=== PATIENT | male | born 1960 | race Caucasian/White ===

== ENCOUNTER 2023-01-03 13:49 | Outpatient (OUT) | payer OTHER, SELFPAY ==
--- NOTE | 2023-01-03 14:13 | US_ITS ---
The [address] [address] Patient Name: SHARMILA GARVEY MRN: [id number] date: 1960 Sex: M Assigned Patient Location: US Current Patient Location: US Accession/Order Number: [id number] Exam Date: 01/03/2023 14:12 Report Date: 01/03/2023 17:09 At the request of: AMIE SMITH Procedure: US venous doppler LE LT EXAM: US venous doppler LE LT HISTORY: Soft Tissue Disorder M79.89 COMPARISON: None. TECHNIQUE: Grayscale, color and Doppler ultrasound FINDINGS: Region: Left leg Thrombus: None Flow: Normal Augmentation: Normal Compressibility: Normal Identified in the area the patient's palpable abnormality is a mixed simple and complex cystic lesion, avascular, measuring 4.7 x 1.8 x 4.9 cm IMPRESSION: No superficial or deep vein thrombus identified in the left leg Complex cystic structure corresponding to the patient's palpable abnormality. Indeterminate, consider a complex hematoma. Lack of vascularity argues against abscess or tumor Electronically authenticated by: ELLIE BEVERLY Date: 01/03/2023 17:09
== END 2023-01-03 13:50 ==
PROVIDERS: PCP Radiology Diagnostic Radiology; Visit Provider Family Medicine
DX: M79.89 Other specified soft tissue disorders (principal); R93.6 Abnormal findings on diagnostic imaging of limbs
CPT/HCPCS: 93971

== ENCOUNTER 2023-01-09 11:16 | Outpatient (OUT) | payer OTHER, MEDICAID, SELFPAY | END 2023-01-09 11:17 | disposition home or self-care (01) | LOC: WC 11:17 | PROVIDERS: PCP Radiology Diagnostic Radiology; Visit Provider Student in an Organized Health Care Education/Training Program | DX: I87.312 Chronic venous hypertension (idiopathic) with ulcer of left lower extremity (principal); L97.821 Non-pressure chronic ulcer of other part of left lower leg limited to breakdown of skin; R60.0 Localized edema; I87.311 Chronic venous hypertension (idiopathic) with ulcer of right lower extremity; L97.811 Non-pressure chronic ulcer of other part of right lower leg limited to breakdown of skin; L60.9 Nail disorder, unspecified; J45.901 Unspecified asthma with (acute) exacerbation; I48.91 Unspecified atrial fibrillation; E11.622 Type 2 diabetes mellitus with other skin ulcer; R00.0 Tachycardia, unspecified; E78.5 Hyperlipidemia, unspecified; I10 Essential (primary) hypertension; I89.0 Lymphedema, not elsewhere classified; E66.8 Other obesity; I83.893 Varicose veins of bilateral lower extremities with other complications; I87.2 Venous insufficiency (chronic) (peripheral) | CPT/HCPCS: G0463 ==

== ENCOUNTER 2023-02-03 14:17 | Outpatient (OUT) | payer OTHER, MEDICAID, SELFPAY | END 2023-02-03 14:18 | disposition home or self-care (01) | LOC: WC 14:17 | PROVIDERS: PCP Radiology Diagnostic Radiology; Visit Provider Physician Assistant | DX: I87.313 Chronic venous hypertension (idiopathic) with ulcer of bilateral lower extremity (principal); L97.821 Non-pressure chronic ulcer of other part of left lower leg limited to breakdown of skin; L97.811 Non-pressure chronic ulcer of other part of right lower leg limited to breakdown of skin; E11.621 Type 2 diabetes mellitus with foot ulcer; L97.521 Non-pressure chronic ulcer of other part of left foot limited to breakdown of skin; L97.421 Non-pressure chronic ulcer of left heel and midfoot limited to breakdown of skin | CPT/HCPCS: G0463 ==

== ENCOUNTER 2023-03-03 14:41 | Outpatient (OUT) | payer OTHER, MEDICAID, SELFPAY | END 2023-03-03 14:42 | disposition home or self-care (01) | LOC: WC 14:43 | PROVIDERS: PCP Radiology Diagnostic Radiology; Visit Provider Physician Assistant | DX: R60.0 Localized edema (principal); I87.312 Chronic venous hypertension (idiopathic) with ulcer of left lower extremity; L97.821 Non-pressure chronic ulcer of other part of left lower leg limited to breakdown of skin | CPT/HCPCS: G0463 ==

== ENCOUNTER 2023-06-04 14:31 | Outpatient (OUT) | payer OTHER, MEDICAID, SELFPAY ==
[2023-06-04 14:50] LABS: Basophils Percent Auto 0.3 % (0.2-2.0); Eosinophils Absolute Auto 0.1 10^3/uL (0.0-0.7); Hematocrit 35.7 % (42.0-54.0); Immature Granulocytes Abs Auto 0.11 10^3/uL (0.00-0.03); Immature Granulocytes Pct Auto 1.1 % (0.0-0.5); Lymphocytes Absolute Auto 1.4 10^3/uL (1.2-3.8); Lymphocytes Percent Auto 13.8 % (20.5-60.0); Mean Corpuscular HGB Conc 30.8 g/dL (29.9-35.2); Mean Corpuscular Hemoglobin 27.7 pg (25.9-34.0); Mean Corpuscular Volume 89.9 fL (80.0-94.0); Mean Platelet Volume 10.7 fL (9.5-13.5); Monocytes Absolute Auto 0.5 10^3/uL (0.3-0.8); Monocytes Percent Auto 5.3 % (1.7-12.0); Neutrophils Absolute Auto 7.8 10^3/uL (1.4-6.5); Neutrophils Percent Auto 78.5 % (43.0-75.0); Platelet Count 381 10^3/uL (150-450); Red Blood Count 3.97 10^6/uL (4.70-6.10); Red Cell Distribution Width 17.2 % (11.0-15.0)
[2023-06-04 14:58] LABS: Microalbumin Urine Random <1.3 mg/dL (<=30.0)
[2023-06-04 15:13] LABS: Estimated Average Glucose 143 mg/dL; Glycohemoglobin A1C 6.6 % (4.5-6.2)
[2023-06-04 15:22] LABS: Alanine Aminotransferase 29 U/L (16-63); Albumin Globulin Ratio 0.5; Albumin Level 2.7 g/dL (3.4-5.0); Alkaline Phosphatase 100 U/L (46-116); Anion Gap 11.3; Aspartate Amino Transferase 17 U/L (15-37); BUN Creatinine Ratio 11.9; Bilirubin Total 0.5 mg/dL (0.2-1.0); Calcium 9.1 mg/dL (8.5-10.1); Carbon Dioxide 30.5 mmol/L (21.0-32.0); Chloride 98 mmol/L (98-107); Chol HDL Ratio 2.5; Cholesterol 100 mg/dL (<=200); Estimated GFR (African America >60 (>=60); Estimated GFR (Non-African Ame 58 (>=60); Globulin 5.6 g/dL; Glucose 117 mg/dL (74-106); HDL Cholesterol 40 mg/dL (40-60); LDL Cholesterol Calculated 48.2 mg/dL; Potassium 4.8 mmol/L (3.5-5.1); Sodium 135 mmol/L (136-145); Total Protein 8.3 g/dL (6.4-8.2); Triglycerides 59 mg/dL (<=150); VLDL CHOLESTEROL 11.8 mg/dL
[2023-06-04 15:44] LABS: Prostate Specific Antigen Scrn 2.08 ng/mL (<=4.00)
== END 2023-06-04 14:32 | disposition home or self-care (01) ==
LOC: LAB 14:32
PROVIDERS: PCP Radiology Diagnostic Radiology; Visit Provider Family Medicine
DX: E78.2 Mixed hyperlipidemia (principal); I10 Essential (primary) hypertension; E11.65 Type 2 diabetes mellitus with hyperglycemia; D50.9 Iron deficiency anemia, unspecified; Z12.5 Encounter for screening for malignant neoplasm of prostate
CPT/HCPCS: 36415; 80053; 80061; 82043; 82728; 83036; 85025; G0103

== ENCOUNTER 2023-06-23 13:57 | Outpatient (OUT) | payer OTHER, MEDICAID, SELFPAY | END 2023-06-23 13:58 | disposition home or self-care (01) | LOC: WC 13:58 | PROVIDERS: PCP Radiology Diagnostic Radiology; Visit Provider Physician Assistant | DX: I87.333 Chronic venous hypertension (idiopathic) with ulcer and inflammation of bilateral lower extremity (principal); L97.811 Non-pressure chronic ulcer of other part of right lower leg limited to breakdown of skin; L97.821 Non-pressure chronic ulcer of other part of left lower leg limited to breakdown of skin | CPT/HCPCS: G0463 ==

== ENCOUNTER 2023-07-08 07:24 | Outpatient (RCR) | payer OTHER, SELFPAY ==
[2023-07-08 15:06] LABS: Basophils Percent Auto 0.3 % (0.2-2.0); Eosinophils Absolute Auto 0.1 10^3/uL (0.0-0.7); Eosinophils Percent Auto 0.9 % (0.9-7.0); Hematocrit 34.9 % (42.0-54.0); Hemoglobin 10.7 g/dL (14.0-18.0); Immature Granulocytes Abs Auto 0.16 10^3/uL (0.00-0.03); Lymphocytes Absolute Auto 1.1 10^3/uL (1.2-3.8); Lymphocytes Percent Auto 13.4 % (20.5-60.0); Mean Corpuscular HGB Conc 30.7 g/dL (29.9-35.2); Mean Corpuscular Hemoglobin 27.6 pg (25.9-34.0); Mean Corpuscular Volume 89.9 fL (80.0-94.0); Mean Platelet Volume 10.8 fL (9.5-13.5); Monocytes Absolute Auto 0.5 10^3/uL (0.3-0.8); Monocytes Percent Auto 5.7 % (1.7-12.0); Neutrophils Absolute Auto 6.1 10^3/uL (1.4-6.5); Neutrophils Percent Auto 77.7 % (43.0-75.0); Platelet Count 435 10^3/uL (150-450); Red Blood Count 3.88 10^6/uL (4.70-6.10); Red Cell Distribution Width 16.6 % (11.0-15.0); White Blood Count 7.8 10^3/uL (4.0-11.0)
[2023-07-08 15:13] LABS: Erythrocyte Sedimentation Rate >130 mm/hr (<=20)
[2023-07-08 15:40] LABS: BUN Creatinine Ratio 21.5; Calcium 9.1 mg/dL (8.5-10.1); Carbon Dioxide 26.9 mmol/L (21.0-32.0); Chloride 100 mmol/L (98-107); Estimated GFR (African America >60 (>=60); Estimated GFR (Non-African Ame 56 (>=60); Glucose 162 mg/dL (74-106); Lactate Dehydrogenase 237 U/L (85-227); Percent Iron Saturation 17.3 %; Potassium 5.9 mmol/L (3.5-5.1); Sodium 134 mmol/L (136-145)
[2023-07-09 14:10] LABS: Erythropoietin (EPO), Serum 19.9 mIU/mL (2.6-18.5)
[2023-07-09 15:08] LABS: Haptoglobin 426 mg/dL (32-363)
[2023-07-10 07:09] LABS: Albumin 2.7 g/dL (2.9-4.4); Alpha-1-Globulin 0.3 g/dL (0.0-0.4); Alpha-2-Globulin 1.1 g/dL (0.4-1.0); Free Kappa Lt Chains,S 98.4 mg/L (3.3-19.4); Free Lambda Lt Chains,S 86.7 mg/L (5.7-26.3); Gamma Globulin 1.6 g/dL (0.4-1.8); Immunofixation Result, Serum Comment: (.); Immunoglobulin A, Qn, Serum 595 mg/dL (61-437); Immunoglobulin G, Qn, Serum 1656 mg/dL (603-1613); Immunoglobulin M, Qn, Serum 54 mg/dL (20-172); Kappa/Lambda Ratio,S 1.13 (0.26-1.65); Protein, Total 6.9 g/dL (6.0-8.5)
== END 2023-07-08 14:30 | disposition home or self-care (01) ==
LOC: INF 07:24
PROVIDERS: PCP Family Medicine; Visit Provider Internal Medicine Hematology & Oncology
DX: D64.9 Anemia, unspecified (principal)
CPT/HCPCS: 36415; 80048; 82668; 82728; 82784; 83010; 83521; 83540; 83550; 83615; 84155; 84165; 85025; 85045; 85652; 86140; 86334; G0463

== ENCOUNTER 2023-07-08 12:56 | Outpatient (OUT) | payer OTHER, SELFPAY | END 2023-07-08 12:57 | disposition home or self-care (01) | LOC: WC 12:56 | PROVIDERS: PCP Family Medicine; Visit Provider Podiatrist Foot & Ankle Surgery | DX: R60.0 Localized edema (principal); I87.331 Chronic venous hypertension (idiopathic) with ulcer and inflammation of right lower extremity; L97.811 Non-pressure chronic ulcer of other part of right lower leg limited to breakdown of skin | CPT/HCPCS: 36415; 80048; 82668; 82728; 82784; 83010; 83521; 83540; 83550; 83615; 84155; 84165; 85025; 85045; 85652; 86140; 86334; G0463 ==

== ENCOUNTER 2023-07-29 07:32 | Outpatient (RCR) | payer OTHER, SELFPAY | END 2023-08-20 23:59 | disposition home or self-care (01) | LOC: INF 07:32 | PROVIDERS: PCP Family Medicine; Visit Provider Internal Medicine Hematology & Oncology | DX: D64.9 Anemia, unspecified (principal); D72.829 Elevated white blood cell count, unspecified; F17.210 Nicotine dependence, cigarettes, uncomplicated; J44.9 Chronic obstructive pulmonary disease, unspecified; Z87.01 Personal history of pneumonia (recurrent); R91.1 Solitary pulmonary nodule | CPT/HCPCS: G0463 ==

== ENCOUNTER 2023-09-25 14:31 | Outpatient (OUT) | payer OTHER, SELFPAY ==
[2023-09-25 14:54] LABS: Basophils Percent Auto 0.5 % (0.2-2.0); Eosinophils Absolute Auto 0.1 10^3/uL (0.0-0.7); Eosinophils Percent Auto 2.2 % (0.9-7.0); Hematocrit 39.4 % (42.0-54.0); Hemoglobin 12.3 g/dL (14.0-18.0); Immature Granulocytes Abs Auto 0.01 10^3/uL (0.00-0.03); Immature Granulocytes Pct Auto 0.2 % (0.0-0.5); Lymphocytes Absolute Auto 1.7 10^3/uL (1.2-3.8); Lymphocytes Percent Auto 27.6 % (20.5-60.0); Mean Corpuscular HGB Conc 31.2 g/dL (29.9-35.2); Mean Corpuscular Hemoglobin 28.3 pg (25.9-34.0); Mean Corpuscular Volume 90.8 fL (80.0-94.0); Mean Platelet Volume 10.8 fL (9.5-13.5); Monocytes Absolute Auto 0.5 10^3/uL (0.3-0.8); Monocytes Percent Auto 7.9 % (1.7-12.0); Neutrophils Absolute Auto 3.9 10^3/uL (1.4-6.5); Neutrophils Percent Auto 61.6 % (43.0-75.0); Platelet Count 253 10^3/uL (150-450); Red Blood Count 4.34 10^6/uL (4.70-6.10); Red Cell Distribution Width 15.9 % (11.0-15.0); White Blood Count 6.2 10^3/uL (4.0-11.0)
[2023-09-25 15:19] LABS: C Reactive Protein <0.50 mg/dL (<=0.50)
[2023-09-25 15:59] LABS: Erythrocyte Sedimentation Rate 60 mm/hr (<=20)
== END 2023-09-25 14:32 | disposition home or self-care (01) ==
LOC: LAB 14:33
PROVIDERS: PCP Family Medicine; Visit Provider Internal Medicine Hematology & Oncology
DX: D64.9 Anemia, unspecified (principal); D72.829 Elevated white blood cell count, unspecified; E11.9 Type 2 diabetes mellitus without complications
CPT/HCPCS: 36415; 83036; 85025; 85652; 86140

== ENCOUNTER 2023-09-25 14:35 | Outpatient (OUT) | payer OTHER, SELFPAY ==
[2023-09-25 15:20] LABS: Estimated Average Glucose 134 mg/dL; Glycohemoglobin A1C 6.3 % (4.5-6.2)
== END 2023-09-25 14:36 | disposition home or self-care (01) ==
LOC: LAB 14:37
PROVIDERS: PCP Family Medicine; Visit Provider Family Medicine
DX: E11.9 Type 2 diabetes mellitus without complications (principal)
CPT/HCPCS: 36415; 83036

== ENCOUNTER 2023-09-30 07:29 | Outpatient (RCR) | payer OTHER, SELFPAY | END 2023-10-19 23:59 | disposition home or self-care (01) | LOC: INF 07:29 | PROVIDERS: PCP Family Medicine; Visit Provider Internal Medicine Hematology & Oncology | DX: D64.9 Anemia, unspecified (principal); D72.829 Elevated white blood cell count, unspecified; F17.210 Nicotine dependence, cigarettes, uncomplicated; J44.9 Chronic obstructive pulmonary disease, unspecified; R91.8 Other nonspecific abnormal finding of lung field | CPT/HCPCS: G0463 ==

== ENCOUNTER 2024-01-02 14:13 | Outpatient (OUT) | payer OTHER, SELFPAY ==
--- NOTE | 2024-01-02 14:40 | CT_ITS ---
[address] [address] Patient Name: SHARMILA GARVEY MRN: [id number] date: 1960 Sex: M Assigned Patient Location: CT Current Patient Location: LAB Accession/Order Number: [id number] Exam Date: 01/02/2024 14:42 Report Date: 01/06/2024 07:22 At the request of: KALI PATEL Procedure: CT lung screening low-dose EXAMINATION: CT lung screening low-dose HISTORY: Nicotine Dependence F17.219 COMPARISON: CT chest 12/12/2022, 08/29/2021 TECHNIQUE: Axial, Coronal, and Sagittal images were created without the administration of IV contrast material. Dose reduction techniques were achieved by using automated exposure control and/or adjustment of mA and/or kV according to patient size and/or use of iterative reconstruction technique. FINDINGS: LUNGS: Stable 5 mm nodule within right middle lobe. Mild emphysematous changes. PLEURA: No mass, effusion, or pneumothorax. VASCULATURE: No abnormality. SCARLETT: No mass or pathologic adenopathy. MEDIASTINUM: No mass or pathologic adenopathy. CARDIAC: No enlargement, pericardial thickening, or pericardial effusion. Coronary artery calcifications: AORTA: No aneurysm or dissection. CHEST WALL: No mass or axillary adenopathy BONES: No bone lesion or fracture. LIMITED ABDOMEN: No suspicious findings. Limited images of the upper abdomen. OTHER: Negative. CT/CT lung screening low-dose IMPRESSION: 1. Lung-RADS 2- Benign Appearance or Behavior. Nodules with a very low likelihood of becoming a clinically active cancer due to size or lack of growth. Follow-up CT Chest in 1 year. Electronically authenticated by: ANUJ BOONE Date: 01/06/2024 07:22
== END 2024-01-02 14:14 | disposition home or self-care (01) ==
LOC: CT 14:13
PROVIDERS: PCP Family Medicine; Visit Provider Internal Medicine
DX: F17.219 Nicotine dependence, cigarettes, with unspecified nicotine-induced disorders (principal)
CPT/HCPCS: 71271

== ENCOUNTER 2024-01-02 14:15 | Outpatient (OUT) | payer OTHER, SELFPAY ==
[2024-01-02 14:46] LABS: Basophils Percent Auto 0.4 % (0.2-2.0); Eosinophils Absolute Auto 0.2 10^3/uL (0.0-0.7); Eosinophils Percent Auto 2.1 % (0.9-7.0); Hematocrit 43.2 % (42.0-54.0); Hemoglobin 13.6 g/dL (14.0-18.0); Immature Granulocytes Abs Auto 0.02 10^3/uL (0.00-0.03); Immature Granulocytes Pct Auto 0.3 % (0.0-0.5); Lymphocytes Absolute Auto 1.9 10^3/uL (1.2-3.8); Lymphocytes Percent Auto 26.4 % (20.5-60.0); Mean Corpuscular HGB Conc 31.5 g/dL (29.9-35.2); Mean Corpuscular Hemoglobin 27.6 pg (25.9-34.0); Mean Corpuscular Volume 87.8 fL (80.0-94.0); Mean Platelet Volume 11.3 fL (9.5-13.5); Monocytes Absolute Auto 0.5 10^3/uL (0.3-0.8); Monocytes Percent Auto 6.2 % (1.7-12.0); Neutrophils Absolute Auto 4.7 10^3/uL (1.4-6.5); Neutrophils Percent Auto 64.6 % (43.0-75.0); Platelet Count 266 10^3/uL (150-450); Red Blood Count 4.92 10^6/uL (4.70-6.10); Red Cell Distribution Width 16.1 % (11.0-15.0); White Blood Count 7.3 10^3/uL (4.0-11.0)
[2024-01-02 15:01] LABS: Anion Gap 10.9; BUN Creatinine Ratio 16.6; Calcium 9.2 mg/dL (8.5-10.1); Carbon Dioxide 29.7 mmol/L (21.0-32.0); Chloride 100 mmol/L (98-107); Estimated GFR (African America 54 (>=60); Estimated GFR (Non-African Ame 45 (>=60); Glucose 128 mg/dL (74-106); Potassium 4.6 mmol/L (3.5-5.1); Sodium 136 mmol/L (136-145)
[2024-01-02 15:05] LABS: Microalbumin Urine Random <1.3 mg/dL (<=30.0)
[2024-01-02 15:09] LABS: Estimated Average Glucose 151 mg/dL; Glycohemoglobin A1C 6.9 % (4.5-6.2)
== END 2024-01-02 14:16 | disposition home or self-care (01) ==
LOC: LAB 14:17
PROVIDERS: PCP Family Medicine; Visit Provider Family Medicine
DX: F17.219 Nicotine dependence, cigarettes, with unspecified nicotine-induced disorders (principal); E11.9 Type 2 diabetes mellitus without complications; D64.9 Anemia, unspecified; E87.5 Hyperkalemia
CPT/HCPCS: 36415; 71271; 80048; 82043; 83036; 85025

== ENCOUNTER 2024-06-01 15:14 | Outpatient (OUT) | payer OTHER, SELFPAY ==
--- NOTE | 2024-06-01 15:25 | CA_ITS ---
Patient Name: SHARMILA GARVEY MR#: [id number] : 1960 Exam Date: 06/01/2024 Ordering Doctor: GLORIA GALVAN CNP ECHOCARDIOGRAM REPORT PROCEDURE: CA ECHO DOPPLER COMPLETE INDICATIONS: Heart failure with reduced ejection fraction COMPARISON: None. DESCRIPTION: COMPLETE ECHOCARDIOGRAM Real-time transthoracic echocardiography with 2D, M-mode, spectral and color flow Doppler performed. QUALITY: Technical quality was good. LEFT VENTRICLE: Normal chamber size. Thickened septal wall. Global left ventricular systolic function is normal. LV EF: Visual estimation of left ventricular ejection fraction is 55-60%. DIASTOLIC: Diastolic function is indeterminate. ATRIAL SEPTUM: LEFT ATRIUM: Moderate dilatation. RIGHT ATRIUM: Severe dilatation. RIGHT VENTRICLE: Moderate dilatation. Mildly decreased right ventricular systolic function. TRICUSPID VALVE: Normal mobility and thickness. No stenosis with mild regurgitation. Mild pulmonary hypertension. RVSP 39 mmHg MITRAL VALVE: Normal mobility and thickness. No evidence of mitral valve stenosis. There is no mitral annular calcification. Trivial mitral regurgitation. AORTIC VALVE: Normal trileaflet appearance. No visible sclerosis. Normal leaflet mobility. No evidence of aortic valve stenosis. No aortic regurgitation. AORTIC ROOT: Normal diameter and appearance. PULMONIC VALVE: Normal thickness and mobility. No stenosis. Trivial regurgitation. PERICARDIUM: No evidence of pericardial effusion. IVC: Collapses with inspirations. Normal size. PLEURA: CONCLUSION: 1. Normal left ventricular size and systolic function. LVEF is estimated 55 to 60%. 2. Moderately dilated right ventricle with mildly decreased systolic function. 3. Moderate severe biatrial dilatation. 4. Mild tricuspid regurgitation. 5. Mildly elevated right-sided pressures. Adult Echocardiography Procedure Report Left Ventricle LVEDD (3.7 - 5.6 cm): 4.69 cm LVESD (2.2 - 4.0 cm): 3.20 cm LVIVS thickness (0.6 - 1.2 cm): 1.26 cm LVPW thickness (0.5 - 1.0 cm): 0.88 cm e': 0.12 m/s E - e': 7.61 LVOT Max Gradient: 4.17 mm[Hg] LVOT Area (cm2): 1.02 m/s Peak Velocity (LVOT): 1.02 m/s Mean Velocity (LVOT): 0.56 m/s LVOT Diameter 2.44 cm Left Ventricular Ejection Fraction: 55-60 % Left Atrium LA Volume Index (2D A2C): 25.89 ml/m2 Left Atrium Systolic Dimension: 3.77 cm Mitral Valve MV E to A Ratio: 1.32 Mitral Valve A-Wave Peak Velocity: 0.68 m/s Mitral Valve E-Wave Peak Velocity: 0.90 m/s Right Ventricle RV Internal Diastolic Dimension: 4.60 cm Aorta AO Root Diam: 3.40 cm Ascending Ao Diam: 3.31 cm Aortic Valve AoV Area (Peak Misael): 3.61 cm2, 3.61 cm2 AoV Area (VTI): 3.29 cm2, 3.29 cm2 Peak Velocity(Antegrade Flow): 1.32 m/s Peak Gradient(Antegrade Flow): 7.01 mm[Hg] Mean Velocity(Antegrade Flow): 0.82 m/s Mean Gradient(Antegrade Flow): 3.06 mm[Hg] Velocity Time Integral: 28.89 cm Tricuspid Valve Peak Velocity (Regurgitant Flow): 2.98 m/s, 2.99 m/s Pulmonic Valve Mean Gradient: 2.23 mm[Hg], 2.75 mm[Hg] Mean Velocity: 0.68 m/s, 0.76 m/s Peak Velocity: 1.17 m/s Peak Gradient: 5.09 mm[Hg], 5.79 mm[Hg] Right Atrium Right Atrium Systolic Pressure: 138.38 ml, 138.38 ml Dictated by: Tank Garrett M.D. on 06/01/2024 at 16:38 Approved by: Tank Garrett M.D. on 06/01/2024 at 16:43
== END 2024-06-01 15:15 | disposition home or self-care (01) ==
PROVIDERS: PCP Family Medicine; Visit Provider Nurse Practitioner Family
DX: I50.22 Chronic systolic (congestive) heart failure (principal)
CPT/HCPCS: 93306

== ENCOUNTER 2024-08-30 15:59 | Emergency (ER) | payer OTHER, SELFPAY ==
[2024-08-30 16:03] VITALS: BP 161/79; PULSE 53; TEMP 36.6; O2SAT 93; BMI 41.6
[2024-08-30] MEDS: FLUORESCEIN SODIUM 1 MG STRIP OP (16:28)
[2024-08-30] MEDS: TETRACAINE HCL 0.5% OP SOL 80 DROP/4 ML BOTTLE OP (16:29)
--- NOTE | 2024-08-30 17:33 | ED_ITS ---
HPI - Eye Problem General Chief complaint: Eye Problems Stated complaint: Eye Pain Time Seen by Provider: 08/30/24 16:07 Source: patient Mode of arrival: walk-in Limitations: no limitations History of Present Illness HPI Narrative: 63-year-old male is coming to the ER with a left eye pain that started almost 2 hours before arrival, he mentioned he had no trauma or fall, he woke up with blurry vision in the left eye that is new, patient denies any history of any eye problems The patient complaining of blurry vision as well as pain in the left eye with tearing, he is denying any headache Related Data Allergies Allergy/AdvReac Type Severity Reaction Status Date / Time No Known Drug Allergies Allergy Verified 08/30/24 16:06 Review of Systems ROS Status of ROS 10 or more systems reviewed and unremark able except as noted in history and below PFSH PFSH Social History Little interest or pleasure in doing things: not at all Feeling down, depressed, or hopeless: not at all Exam Narrative Exam Narrative: The patient eye examination shows bilateral pupils are reactive, the patient came with a severe pain and injection of the left eye and on examination I do not see any signs of ulceration or trauma, no drainage and there is no rash There is no hyphema or hypopyon after applying tetracaine I was able to look more at the conjunctiva and I noted that the patient have severely injected conjunctiva especially around the cornea The patient intraocular pressure could not be measured because 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 Constitutional Vital Signs, click to edit/add: Last Vital Signs Temp 97.8 F 08/30/24 16:03 Pulse 53 L 08/30/24 16:03 Resp 20 08/30/24 16:03 BP 161/79 H 08/30/24 16:03 Pulse Ox 93 L 08/30/24 16:03 Course Vital Signs Vital signs: Vital Signs Temperature 97.8 F 08/30/24 16:03 Pulse Rate 53 L 08/30/24 16:03 Respiratory Rate 20 08/30/24 16:03 Blood Pressure 161/79 H 08/30/24 16:03 Pulse Oximetry 93 L 08/30/24 16:03 Temperature 97.8 F 08/30/24 16:03 Pulse Rate 53 L 08/30/24 16:03 Respiratory Rate 20 08/30/24 16:03 Blood Pressure 161/79 H 08/30/24 16:03 Pulse Oximetry 93 L 08/30/24 16:03 MDM - Eye Problem MDM Narrative Medical decision making narrative: The patient is 10 out of 50 in both eyes, and the patient is having blurry vision only in the left eye The patient mentioned that he does his yearly eye checkup in [facility] and last time he had a checkup he did not have any issues The patient is diabetic Discharge Plan Discharge Patient Disposition: Still a Patient
--- NOTE | 2024-08-30 18:39 | ED_ITS ---
HPI - Eye Problem General Chief complaint: Eye Problems Stated complaint: Eye Pain Time Seen by Provider: 08/30/24 16:07 Source: patient Mode of arrival: walk-in Limitations: no limitations History of Present Illness HPI Narrative: The patient comes to the ER with a left eye pain that started today almost 2 hours before arrival, the patient woke up with this with no preceding symptoms, usually get regular checkup and he does not have any issues although he is diabetic The patient denies any trauma or fall denies any new medication, he also denies any history of blurry vision in the right eye, he is presenting to us with left eye pain and blurry vision that started after he woke up from sleep Related Data Allergies Allergy/AdvReac Type Severity Reaction Status Date / Time No Known Drug Allergies Allergy Verified 08/30/24 16:06 Review of Systems ROS Status of ROS 10 or more systems reviewed and unremark able except as noted in history and below PFSH PFSH Social History Little interest or pleasure in doing things: not at all Feeling down, depressed, or hopeless: not at all Exam Narrative Exam Narrative: Examination: Constitutional Vital Signs, click to edit/add: Last Vital Signs Temp 97.8 F 08/30/24 16:03 Pulse 53 L 08/30/24 16:03 Resp 20 08/30/24 16:03 BP 161/79 H 08/30/24 16:03 Pulse Ox 93 L 08/30/24 16:03 Course Vital Signs Vital signs: Vital Signs Temperature 97.8 F 08/30/24 16:03 Pulse Rate 53 L 08/30/24 16:03 Respiratory Rate 20 08/30/24 16:03 Blood Pressure 161/79 H 08/30/24 16:03 Pulse Oximetry 93 L 08/30/24 16:03 Temperature 97.8 F 08/30/24 16:03 Pulse Rate 53 L 08/30/24 16:03 Respiratory Rate 20 08/30/24 16:03 Blood Pressure 161/79 H 08/30/24 16:03 Pulse Oximetry 93 L 08/30/24 16:03 Discharge Plan Discharge Patient Disposition: Still a Patient
[2024-08-30] MEDS: BRIMONIDINE TARTRATE 0.15 % OP SOL 100 DROP/5 ML BOTTLE OP (19:04)
[2024-08-30] MEDS: TOBRAMYCIN/DEXAMETHASONE 0.3%/0.1% OP SUSP 50 DROP/2.5 ML BOTTLE 2 ML OP (19:05)
== END 2024-08-30 19:17 | disposition home or self-care (01) ==
PROVIDERS: Emergency Provider Emergency Medicine; PCP Family Medicine
DX: H20.9 Unspecified iridocyclitis (principal); E11.9 Type 2 diabetes mellitus without complications
CPT/HCPCS: 99284

== ENCOUNTER 2024-09-23 15:58 | Outpatient (OUT) | payer OTHER, SELFPAY ==
[2024-09-23 16:14] LABS: Basophils Percent Auto 0.2 % (0.2-2.0); Eosinophils Absolute Auto 0.1 10^3/uL (0.0-0.7); Eosinophils Percent Auto 1.1 % (0.9-7.0); Hematocrit 47.3 % (42.0-54.0); Hemoglobin 15.4 g/dL (14.0-18.0); Immature Granulocytes Abs Auto 0.03 10^3/uL (0.00-0.03); Immature Granulocytes Pct Auto 0.3 % (0.0-0.5); Lymphocytes Absolute Auto 1.9 10^3/uL (1.2-3.8); Lymphocytes Percent Auto 17.7 % (20.5-60.0); Mean Corpuscular HGB Conc 32.6 g/dL (29.9-35.2); Mean Corpuscular Hemoglobin 29.9 pg (25.9-34.0); Mean Corpuscular Volume 91.8 fL (80.0-94.0); Monocytes Absolute Auto 0.6 10^3/uL (0.3-0.8); Monocytes Percent Auto 5.3 % (1.7-12.0); Neutrophils Absolute Auto 8.2 10^3/uL (1.4-6.5); Neutrophils Percent Auto 75.4 % (43.0-75.0); Platelet Count 268 10^3/uL (150-450); Red Blood Count 5.15 10^6/uL (4.70-6.10); Red Cell Distribution Width 13.3 % (11.0-15.0); White Blood Count 10.9 10^3/uL (4.0-11.0)
[2024-09-23 16:34] LABS: Creatinine Urine Random 74.03 mg/dL (20.00-300.00); Microalbum Creatinine Ratio Ur 70.2 mg/g (0.0-29.9); Microalbumin Urine Random 5.2 mg/dL (<=30.0)
[2024-09-23 16:38] LABS: Estimated Average Glucose 303 mg/dL; Glycohemoglobin A1C 12.2 % (4.5-6.2)
[2024-09-23 17:15] LABS: Alanine Aminotransferase 38 U/L (16-63); Albumin Globulin Ratio 0.9; Albumin Level 3.5 g/dL (3.4-5.0); Alkaline Phosphatase 177 U/L (46-116); Anion Gap 10.4; Aspartate Amino Transferase 19 U/L (15-37); BUN Creatinine Ratio 11.9; Bilirubin Total 0.4 mg/dL (0.2-1.0); Calcium 9.4 mg/dL (8.5-10.1); Carbon Dioxide 31.7 mmol/L (21.0-32.0); Chloride 96 mmol/L (98-107); Chol HDL Ratio 2.3; Cholesterol 116 mg/dL (<=200); Estimated GFR (African America 53 (>=60 mL/min/1.73m^2); Estimated GFR (Non-African Ame 44 (>=60 mL/min/1.73m^2); Globulin 4.1 g/dL; Glucose 378 mg/dL (74-106); HDL Cholesterol 50 mg/dL (40-60); Potassium 5.1 mmol/L (3.5-5.1); Sodium 133 mmol/L (136-145); Thyroid Stimulating Hormone 2.717 uIU/mL (0.358-3.740); Total Protein 7.6 g/dL (6.4-8.2); Triglycerides 100 mg/dL (<=150)
[2024-09-23 17:20] LABS: Prostate Specific Antigen Scrn 2.95 ng/mL (<=4.00)
== END 2024-09-23 15:59 | disposition home or self-care (01) ==
LOC: LAB 15:58
PROVIDERS: PCP Family Medicine; Visit Provider Family Medicine
DX: E11.59 Type 2 diabetes mellitus with other circulatory complications (principal); Z12.5 Encounter for screening for malignant neoplasm of prostate; I48.19 Other persistent atrial fibrillation
CPT/HCPCS: 36415; 80053; 80061; 82043; 82570; 83036; 84443; 85025; G0103

== ENCOUNTER 2025-03-14 14:38 | Outpatient (OUT) | payer MEDICARE, SELFPAY ==
--- OUTSIDE RECORDS SUMMARY | 2025-01-31 10:20 | XMS_ITS ---
Author Organization The [facility] in [place] Address [address] [place] [address] Care Team Providers Care Trainman Name Role Phone Tamanna Pineda Primary Care Provider Simón Hardin [phone] REASON FOR VISIT 1 YEAR-EMPHYSEMA/CT CHEST Encounters Encounter Location Date Provider Diagnosis Pulmonary Medicine [address] [address] 01/31/2025 Simón Hennessy Plan Of Treatment No Information Progress Notes * Jarrod GARVEY RDOB:1960 (64 yo M)Acc No.[id number]:01/31/2025 UNLOCKED PROGRESS NOTE Follow Up Patient: Vannessa MEAD Jarrod Morris Provider: Leann Hennessy DO :1960 A ge:64 Y S ex:Male Date:01/31/2025 Address:[address] [place] [address] [address], [facility] Pcp:Tamanna Pineda Subjective: * Chief Complaints: * 1 . 1 YEAR-EMPHYSEMA/CT CHEST. * Medical History: Objective: * Vitals: Assessment: Plan: * Treatment: * * Electronic signature of Stefania Hennessy DO on 03/14/2025 at 02:40 PM EDT Sign off status: Pending Visit Status: N /S N/C (No Show/No Charge) * Provider: Leann Hennessy DO Date: 01/31/2025 Generated for Printi ng/Faxing/eTransmitting on: 03/14/2025 02:40 PM EDT
--- OUTSIDE RECORDS SUMMARY | 2025-01-31 10:59 | XMS_ITS ---
Author Organization The [facility] in [place] Address [address] [place] [address] Care Team Providers Care Food Trades Assistants Name Role Phone Tamanna Pineda Primary Care Provider Simón Hardin [phone] REASON FOR VISIT No Show Appointment Encounters Encounter Location Date Provider Diagnosis Pulmonary Medicine [place] [address] [place] [address] 01/31/2025 Simón Hennessy Plan Of Treatment No Information Progress Notes * NICKI Jarrod RDOB:1960 (64 yo M)Acc No.[id number]:01/31/2025 Patient: Jarrod JAMA Arturo :1960 A ge:64 Y S ex:Male Address:[facility], [place] [address] * true * Date: Generated for Sergey cuevas/Raymundo/eTransmitting on: 0 03/14/2025 02:40 PM EDT
--- OUTSIDE RECORDS SUMMARY | 2025-02-08 11:00 | XMS_ITS ---
Author Organization The [facility] in [place] Address [address] [place] [address] Care Team Providers Care Hearing Aide Technician Name Role Phone Tamanna Pineda Primary Care Provider Simón Hardin [phone] REASON FOR VISIT 1 YEAR-EMPHYSEMA/CT CHEST Encounters Encounter Location Date Provider Diagnosis Pulmonary Medicine [address] [address] 02/08/2025 Simón Hennessy Plan Of Treatment No Information Progress Notes * Jarrod GARVEY RDOB:1960 (64 yo M)Acc No.[id number]:02/08/2025 UNLOCKED PROGRESS NOTE Follow Up Patient: Jarrod JAMA Arturo Provider: Leann Hennessy DO :1960 A ge:64 Y S ex:Male Date:02/08/2025 Address:[address] [place] [address] [address], [facility] Pcp:Tamanna Pineda Subjective: * Chief Complaints: * 1 . 1 YEAR-EMPHYSEMA/CT CHEST. * Medical History: Objective: * Vitals: Assessment: Plan: * Treatment: * * Electronic signature of Stefania Hennessy DO on 03/14/2025 at 02:40 PM EDT Sign off status: Pending Visit Status: R /S (Rescheduled) * Provider: Leann Hennessy DO Date: 0 02/08/2025 Generated for Printi ng/Faxing/eTransmitting on: 0 03/14/2025 02:40 PM EDT
--- OUTSIDE RECORDS SUMMARY | 2025-03-14 14:40 | XMS_ITS | Clinical Summary ---
Author Organization [facility] Address [address] [place] [address] Phone Care Team Providers Care Law Office Receptionist Name Role Phone Unavailable Primary Care Provider Unavailabl e Social History Tobacco Use Types Packs/Day Years Used Date Smoking Tobacco: Never Assessed Sex and Gender Information Value Date Recorded Sex Assigned at Not on file Legal Sex Male 1:55 AM EST Gender Identity Not on file Sexual Orientation Not on file Plan of Treatment Health Maintenance Due Date Last Done Comments CT Colonography 1960 Colonoscopy 1960 Colorectal Cancer Screening 1960 FIT-DNA (Cologuard) 1960 FIT 1960 Lipid Panel 1960 Sigmoidoscopy 1960 Yearly Adult Physical 1960 MMR Vaccines (1 of 1 - Stand steph series) 10/12/1960 Hepatitis C Screening 10/12/1977 DTaP/Tdap/Td Vaccines (1 - Tdap) 10/12/1981 PSA Prostate Cancer Screening 10/12/2009 Pneumococcal Vaccine (1 of 1 - PCV) 10/12/2009 Zoster Vaccines (1 of 2) 10/12/2009 COVID-19 Vaccine ( - 2023-2 5 season) 2024 Influenza Vaccine (#1) 2025 RSV High Risk: (Elderly (60+ ) or Population) (1 - 1-dose 75+ series) 10/12/2034 HIB Vaccines Aged Out No longer eligi ble based on patient's age to complete this topic HPV Vaccines Aged Out No longer eligi ble based on patient's age to complete this topic Hepatitis A Vaccines Aged Out No long er eligible based on patient's age to complete this topic Hepatitis B Vaccines Aged Out No long er eligible based on patient's age to complete this topic IPV Vaccines Aged Out No longer eligi ble based on patient's age to complete this topic Meningococcal Vaccine Aged Out No meaghan prabhu eligible based on patient's age to complete this topic Rotavirus Vaccines Aged Out No longer eligible based on patient's age to complete this topic
--- OUTSIDE RECORDS SUMMARY | 2025-03-14 14:40 | XMS_ITS | Encounter Summary ---
Author Organization [facility] tem Address [facility] [address] [place] [address] Care Team Providers Care Underground Drill Operator Name Role Phone Tamanna Pineda MD Primary Care Provider [phone] Encounter Details Date Type Department Care Team (Late st Contact Info) Description 03/28/2022 Orders Only [facility] - Acute Care [address] [place] [id number] Gonzalo Kinsey RN Social History Tobacco Use Types Packs/Day Years Used Date Smoking Tobacco: Every Day Cigarettes 0.5 45 Smokeless Tobacco: Never Alcohol Use Standard Drinks/Week Comments Not Currently 0 (1 standard drink = 0.6 oz pur e alcohol) Childcare Answer Date Recorded Childcare Unknown 10/10/2020 Employment Answer Date Recorded Employment Unknown 10/10/2020 Purpose - Life Answer Date Recorded Purpose and direction in life Unknown Sex and Gender Information Value Date Recorded Sex Assigned at Male 12/15/2022 3:36 PM EDT Legal Sex Male 12:04 PM EDT Gender Identity Male 12/15/2022 3:36 PM EDT Sexual Orientation Bisexual 12/15/2022 3: 36 PM EDT COVID-19 Exposure Response Date Recorded In the last month, have you been in contact with someone who was confirmed or suspected to have Coronavirus / COVID-19? No / Unsure 03/25/2022 1:22 PM EDT documented as of this encounter Plan of Treatment Not on file documented as of this encounter Goals Goal Patient Goal Type Associated Problems Recent Progress Patient-Stated? Author safe discharge to home General Yes Karen Pastor, RN Note: Evaluation of progress towards goal: safe transition from hospital to home with family support. documented as of this encounter Visit Diagnoses Not on filedocumented in this encounter Care Teams Underground Drill Operator Relationship Specialty Start Date End Date Tamanna Pineda MD [address] [place] [address] PCP - General Family Medicine 03/26/22 documented as of this encounter
--- OUTSIDE RECORDS SUMMARY | 2025-03-14 14:40 | XMS_ITS | Encounter Summary ---
Author Organization The [facility] Address [address] [place] [address] Care Team Providers Care Patient Care Technician Instructor Name Role Phone Tamanna Pineda MD Primary Care Provider [phone] Reason for Visit * Reason Comments Med Refill Encounter Details Date Type Department Care Team (Late st Contact Info) Description 06/28/2022 Refill [facility] Cardiology [address] [place] [address] Nilton Nichols MD [address] [facility] [address] [place] [address] Essential hypertension Social History Tobacco Use Types Packs/Day Years Used Date Smoking Tobacco: Every Day Cigarettes Smokeless Tobacco: Never Alcohol Use Standard Drinks/Week Comments Yes 0 (1 standard drink = 0.6 oz pur e alcohol) OCCASIONAL Sex and Gender Information Value Date Recorded Sex Assigned at Not on file Legal Sex Male 9:48 PM EDT Gender Identity Not on file Sexual Orientation Not on file documented as of this encounter Plan of Treatment Not on file documented as of this encounter Visit Diagnoses Diagnosis Essential hypertension Unspecified essential hypertension documented in this encounter Care Teams Patient Care Technician Instructor Relationship Specialty Start Date End Date Tamanna Pineda MD [address] PCP - General 03/12/22 documented as of this encounter
--- OUTSIDE RECORDS SUMMARY | 2025-03-14 14:40 | XMS_ITS | Patient Health Record ---
Author Organization The [facility] in [place] Address [address] [place] [address] Care Team Providers Care Director Business Name Role Phone Tamanna Pineda Primary Care Provider Simón Hardin Unavailable [phone] Allergies No Known Allergies Reason For Referral No Information Medications Medication SIG (Take, Route, Frequency, Duration) Notes Start Date End Date Status Furosemide 40 MG 1 tablet Orally Once a day Active buPROPion HCl ER (XL) 300 MG 1 tablet in the morning Orally Once a day Active Atorvastatin Calcium 40 MG 1 tablet Oral ly Once a day Active Amiodarone HCl 200 MG 1 tablet Orally On ce a day Active Xarelto 20 MG 1 tablet with food O rally Once a day Active Trulicity 0.75 MG/0.5ML as directed Subcutaneous Active Spironolactone 25 MG 1 tablet Orally Active Pregabalin 150 MG 1 capsule Orally Onc e a day Active metFORMIN HCl 1000 MG 1 tablet with a me al Orally Once a day Active Lisinopril 5 MG 1 tablet Orally Once a day Active Immunizations Vaccine Route Administration Date Status Comme nts Abrysvo Unknown 05/15/2023 Administered Flu, Flublok (41704) 18yr+, single-dose (9404-2285) Unknown 05/15/2023 Administered Flu, Flucelvax (17672) 2 yrs +, single-dose syringe (4839-7500) Unknown 05/28/2022 Administered Pneumococcal (Prevnar 20) Unknown 07/04/2022 Administer ed SARS-COV-2 (COVID 19 Pfizer 30mcg/0.3mL) Unknown 05/14/2021 Administered Tdap (Boostrix) Unknown 12/13/2022 Administered ZOSTER (SHINGLES) VACCINE (HZV) Unknown 05/15/2023 Admi nistered Social History Tobacco Use: Social History Observation Description Date Details (start date - stop date) Current Smoker NA - NA Tobacco Use/Smoking Question Answer Notes Patient is a current smoker How often do you smoke cigarettes? every day Additional Findings: Tobacco User Moderate cigar ette smoker (10-19 cigs/day) Tobacco Control (Standard) Question Answer Notes Tobacco use: Current every day smoker Additional Findings: Tobacco user Moderate cigar ette smoker (10-19 cigs/day) Problems Problem Type SNOMED Code ICD Code Onset Dates Problem Status W/U Status Risk Notes Problem Obesity (839734390) Obesity, uns pecified (E66.9) Active confirmed Problem Venous ulcer of lowe r extremity due to chronic peripheral venous hypertension (disorder) (709418643670050) Chronic venous hypertension (idiopathic) with ulcer of right lower extremity (I87.311) Active confirmed Problem Venous ulcer of lowe r extremity due to chronic peripheral venous hypertension (740896207071831) Chronic venous hypertension (idiopathic) with ulcer of left lower extremity (I87.312) Active confirmed Problem Stasis dermatitis co-occurrent with venous ulcer of right lower extremity due to chronic peripheral venous hypertension (153992707021134) Chronic venous hypertension (idiopathic) with ulcer and inflammation of right lower extremity (I87.331) Active confirmed Problem Centrilobular emphysema (80402192) Centrilobular emphysema (J43.2) Active confirmed Problem Chronic ulcer of lower extremity (86227494) Non-pressure chronic ulcer of other part of right lower leg limited to breakdown of skin (L97.811) Active confirmed Problem Chronic ulcer of ski n of lower leg (disorder) (38233905136286730) Non-pressure chronic ulcer of other part of left lower leg limited to breakdown of skin (L97.821) Active confirmed Problem Non-pressure chr onic ulcer of other part of left lower leg with fat layer exposed (L97.822) Active confirmed Problem Solitary pulmonary nodule (741433384) Solitary pulmonary nodule (R91.1) Active confirmed Problem Long-term current us e of anticoagulant (651451964) continuous churn buttermaker (current) use of anticoagulants (Z79.01) Active confirmed Problem Long-term current us e of inhaled steroid (317530431) continuous churn buttermaker (current) use of inhaled steroids (Z79.51) Active confirmed Problem Diabetes mellitus type 2 (57708413) Diabetes mellitus type 2, uncomplicated (E11.9) Active confirmed Problem Obstructive sleep apnea (35045520) Obstructive sleep apnea (G47.33) Active confirmed Problem Chronic systolic heart failure (773635412) Chronic systolic congestive heart failure (I50.22) Active confirmed Problem Mental disorder caused by drug (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) Cigarette nicotine dependence with nicotine-induced disorder (F17.219) Active confirmed Problem Central sleep apnea (27729182) Central sleep apnea (G47.31) Active confirmed Problem Ankle edema (93958800) Ankle edema (R60.0) Active confirmed Problem Varicose veins of bilateral lower limbs (37098385144511678) Symptomatic varicose veins of both lower extremities (I83.893) Active confirmed Problem Lymphedema (331788984) Acquired lymphedema of leg (I89.0) Active confirmed Problem Post-thrombotic syndrome of right lower extremity (93338582996578258) Post-thrombotic syndrome of right lower extremity (I87.001) Active confirmed Problem Obesity (180799441) Adult BMI > 30 (E66.8) Active confirmed Problem Hyperlipoproteinemia (0204302) Acquired hyperlipoproteinemia (E78.5) Active confirmed Problem Hyperglycemia due to type 2 diabetes mellitus (545323673445501) Controlled diabetes mellitus with hyperglycemia (E11.65) Active confirmed Problem Chronic venous hypertension with ulcer and inflammation involving left side (I87.332) Active confirmed Problem Stasis dermatitis co-occurrent with venous ulcer of right lower extremity due to chronic peripheral venous hypertension (908654542144679) Chronic venous hypertension w/ulcer and inflammation involv right side (I87.331) Active confirmed Problem Obesity (926447911) Adult BMI > 30 (E66.8) Active confirmed Problem Peripheral venous insufficiency (79559509) Acute stasis dermatitis (I87.2) Active confirmed Problem Atrophy of nail (203812305) Atrophy of nail (L60.3) Active confirmed Problem Skin ulcer of ri ght knee, limited to breakdown of skin (L97.811) Active confirmed Problem Disorder of nail (94853316) Disorder of nail (L60.9) Active confirmed Problem Body mass index 35.0 0 to 39.99 (665295490985521) Body mass index [BMI] 39.0-39.9, adult (Z68.39) Active confirmed Encounters Encounter Location Date Provider Diagnosis Pulmonary Medicine [address] [address] 08/17/2024 Simón Gerhard Centrilobular emphys dani J43.2 Pulmonary Medicine [place] [address] [place] [address] 01/10/2025 Simón Hennessy Centrilobular emphys dani J43.[address] [address] 01/31/2025 Simón Rufino Assessments Encounter Date Diagnosis (ICD Code) Assessment Notes Treatment Notes Treatment Clinical Notes Section Notes 08/17/2024 Centrilobular emphysema (ICD-10 - J43.2) 01/10/2025 Centrilobular emphysema (ICD-10 - J43.2) Plan Of Treatment Future Test Test Name Order Date CT Chest Low Dose for Screening* 025 Medical (General) History Medical History History ICD Code Centrilobular emphysema J43.2 Persistent atrial fibrillation I48.19 Central sleep apnea G47.31 Obstructive sleep apnea G47.33 Chronic systolic congestive heart failur e I50.22 Gastroesophageal reflux disease K21.9 Essential Hypertension I10 Hyperlipidemia E78.5 Lymphedema I89.0 Solitary pulmonary nodule R91.1 Diabetes mellitus type 2, uncomplicated E11.9 Cigarette nicotine dependence with nicot ine-induced disorder F17.219 continuous churn buttermaker (current) use of inhaled stero ids Z79.51 custodial (current) use of anticoagulant s Z79.01 Surgical History Surgery Date(Month/Year) vein ligation discectomy Cardiac Catheterization 03/10/2015 Cardiac Ablation
--- OUTSIDE RECORDS SUMMARY | 2025-03-14 14:40 | XMS_ITS | Clinical Summary ---
Author Organization [facility] Address [id number] [address] [place] [address] Care Team Providers Care Supervisor Core Shop Name Role Phone Tamanna Pineda MD Primary Care Provider [phone] Allergies No known active allergies Medications atorvastatin (LIPITOR) 40 mg tablet atorvastatin 40 mg tablet TAKE 1 TABLET BY MOUTH EVERY DAY Active buPROPion XL (WELLBUTRIN XL) 300 mg 24 hr tablet bupropion HCl XL 300 mg 24 hr tablet, extended release 01/12/20 20 Active lisinopriL (PRINIVIL,ZESTRI L) 5 mg tablet lisinopril 5 mg tablet TAKE 1 TABLET BY MOUTH EVERY DAY Active spironolactone (ALDACTONE) 25 mg tablet spironolactone 25 mg tablet TAKE 1 TABLET EVERY DAY Active rivaroxaban (XARELTO) 20 mg tablet tablet Xarelto 20 mg tablet 05/15/20 20 Active dulaglutide (TRULICITY) 0.75 mg/0.5 mL pen injector Trulicity 0.75 mg/0.5 mL subcutaneous pen injector INJECT 1 (ONE) pen SUBCUTANEOUSLY weekly 09/27/19 21 Active pregabalin (LYRICA) 150 mg capsule 2 (two) times a day. 08/30/19 21 Active metFORMIN (GLUCOPHAGE) 1000 mg tablet Take 1,000 mg by mouth 2 (two) times a day. 09/11/19 21 Active fluticasone propionate (FLONASE) 50 mcg/actuation nasal sprayIndications :Chronic sinusitis, unspecified location Administer 1 spray into each nostril daily. 15.8 mL 12 10/19/19 21 Active guaiFENesin (MUCINEX) 1,200 mg tablet extended release 12hrIndications: Chronic sinusitis, unspecified location Take 1 tablet by mouth 2 (two) times a day. 30 each 10/19/19 21 Active fluticasone propionate (FLONASE) 50 mcg/actuation nasal sprayIndications :Chronic sinusitis, unspecified location Administer 1 spray into each nostril in the morning. 15.8 mL 12 11/30/19 22 Active amiodarone (PACERONE) 200 mg tabletIndication s:prevention of recurrent atrial fibrillation Take 200 mg by mouth in the morning. Indications: prevention of recurrent atrial fibrillation. Active furosemide (LASIX) 40 mg tablet Take 40 mg by mouth daily. Active Active Problems Problem Noted Date Diagnosed Date Cellulitis of right lower extremity 03/27/2022 Overview (03/27/2022): Weeping cellulitis Pneumonia of both lungs due to infectious organi sm 03/25/2022 Pneumonia 03/25/2022 Sensorineural hearing loss (SNHL) of both ears 0 11/16/2020 Chronic sinusitis 10/18/2020 Immunizations Immunization Administration Dates Next Due Tdap 12/13/2022 Social History Tobacco Use Types Packs/Day Years Used Date Smoking Tobacco: Every Day Cigarettes 0.5 45 Smokeless Tobacco: Never Alcohol Use Standard Drinks/Week Comments Not Currently 0 (1 standard drink = 0.6 oz pur e alcohol) Childcare Answer Date Recorded Childcare Unknown 10/10/2020 Employment Answer Date Recorded Employment Unknown 10/10/2020 Hunger Screening Answer Date Recorded Within the past 12 months we worried whether our food would run out before we got money to buy more. Never True 12/13/2022 Within the past 12 months th e food we bought just didn't last and we didn't have money to get more. Never True 12/13/2022 Purpose - Life Answer Date Recorded Purpose and direction in life Unknown Sex and Gender Information Value Date Recorded Sex Assigned at Male 12/15/2022 3:36 PM EDT Legal Sex Male 12:04 PM EDT Gender Identity Male 12/15/2022 3:36 PM EDT Sexual Orientation Bisexual 12/15/2022 3: 36 PM EDT Last Filed Vital Signs Vital Sign Reading Time Taken Comments Blood Pressure 102/66 12/13/2022 9:30 PM EDT Pulse 79 12/13/2022 9:30 PM EDT Temperature 36.9 C (98.5 F) 12/13/2022 7:24 PM EDT Respiratory Rate 17 12/13/2022 9:30 PM EDT Oxygen Saturation 97% 12/13/2022 9:30 PM EDT Inhaled Oxygen Concentration - - Weight 136.1 kg (300 lb) 12/13/2022 7:24 PM EDT Height 175.3 cm (5' 9 ) 12/13/2022 7:24 PM EDT Body Mass Index 44.3 12/13/2022 7:24 PM EDT Plan of Treatment Health Maintenance Due Date Last Done Comments Diabetic Ophthalmology Exam 1960 Statin Use: Diabetic 1960 Depression Screening 1971 Tobacco Screening 1971 Diabetic Foot Exam 10/12/1977 Zoster (Shingles) Vaccine (1 of 2) 10/12/2009 Adult BMI Screening 12/14/2023 12/13/2022 COVID-19 Vaccine ( - 2023-2 5 season) 2024 05/14/2021, 10/19/2020, 09/28/2020 Fall Risk Screening 10/12/2024 Influenza Vaccine 03/21/2025 05/28/2022, , 03/30/2020, Additional history exists DTaP,Tdap and Td Vaccines (2 - Td or Tdap) 12/13/2032 12/13/2022 Goals Goal Patient Goal Type Associated Problems Recent Progress Patient-Stated? Author safe discharge to home General Yes Karen Pastor, RN Note: Evaluation of progress towards goal: safe transition from hospital to home with family support. Medical Devices Not on file Insurance MEDICAID [place] [employer]VANTAGE Advance Directives * Full Code (Latest Code Status on File) Date Activated Date Inactivated Comments 03/25/2022 5:34 PM 03/27/2022 9:28 PM Care Teams Supervisor Core Shop Relationship Specialty Start Date End Date Tamanna Pineda MD [facility] [place] [address] PCP - General Family Medicine 03/26/22
--- OUTSIDE RECORDS SUMMARY | 2025-03-14 14:40 | XMS_ITS | Clinical Summary ---
Author Organization [facility] Address [address] [place] [address] Care Team Providers Care Facialist Name Role Phone Tamanna Pineda MD Primary Care Provider Allergies No known active allergies Medications atorvastatin (Lipitor) 40 MG tablet Take 40 mg by mouth Daily Active buPROPion XL (Wellbutrin XL) 300 MG 24 hr tablet Take 1 tablet by mouth Daily Active lisinopril 5 MG tablet Take 1 tablet by mouth Daily Active metFORMIN (Glucophage) 1000 MG tablet Take 1 tablet by mouth in the morning and 1 tablet before bedtime. Active pregabalin (Lyrica) 150 MG capsule Take 150 mg by mouth in the morning and 150 mg before bedtime. Active sildenafil (Viagra) 100 MG tablet Take 100 mg by mouth if needed Active spironolactone (Aldactone) 25 MG tablet Take 25 mg by mouth in the morning. 02/26/2023 Active Trulicity 0.75 MG/0.5ML solution pen-injector Inject 0.75 mg under the skin 1 (one) time per week Active Xarelto 20 MG tablet Take 20 mg by mouth Daily Active Active Problems Problem Noted Date Diagnosed Date Sensorineural hearing loss (SNHL), bilateral 07/2023 Diabetes mellitus 11/13/2023 Tinnitus, bilateral 11/13/2023 COPD (chronic obstructive pulmonary disease) Centrilobular emphysema 11/13/2023 Dyspnea 09/10/2021 Sensorineural hearing loss (SNHL) of both ears 0 11/16/2020 Chronic sinusitis 10/18/2020 Chronic systolic heart failure 06/12/2020 Spinal stenosis of lumbar region 04/02/2019 Smoker 04/02/2019 Low back pain 12/18/2018 Obstructive sleep apnea syndrome 12/18/2018 Overview (11/13/2023): Uses bi pap Persistent atrial fibrillation 12/10/2018 Essential hypertension 02/24/2015 Paroxysmal atrial flutter 02/24/2015 Resolved Problems Problem Noted Date Diagnosed Date Resolved Date Cellulitis of right lower extremity 03/27/2022 11/13/2023 Overview (11/13/2023): Weeping cellulitis Weeping cellulitis Pneumonia of both lungs due to infectious organism 03/25/2022 11/13/2023 Paroxysmal atrial fibrillation 06/12/2020 11/13/2023 Type 2 diabetes mellitus without complication 06/12/20 20 11/13/2023 History of radiofrequency ab lation procedure for cardiac arrhythmia 04/02/2019 11/13/2023 Overview (11/13/2023): Has had cardioversion 12/2018 / unsuccessful / then had cardiac ablation Has had cardioversion 12/2018 / unsuccessful / then had cardiac ablation Family History Medical History Relation Name Comments Diabetes Brother Heart failure Father Cancer Mother Relation Name Status Comments Brother Father Mother Social History Tobacco Use Types Packs/Day Years Used Date Smoking Tobacco: Every Day Cigarettes Smokeless Tobacco: Never Tobacco Cessation:Ready to Q uit: Not Asked; Counseling Given: Not Answered Alcohol Use Standard Drinks/Week Comments Not Currently 0 (1 standard drink = 0.6 oz pur e alcohol) Sex and Gender Information Value Date Recorded Sex Assigned at Not on file Legal Sex Male 6:34 PM EDT Gender Identity Not on file Sexual Orientation Not on file Last Filed Vital Signs Vital Sign Reading Time Taken Comments Blood Pressure 100/60 11/19/2023 9:58 AM EDT Pulse - - Temperature - - Respiratory Rate - - Oxygen Saturation - - Inhaled Oxygen Concentration - - Weight 122 kg (270 lb) 11/19/2023 9:58 AM EDT Height 172.7 cm (5' 8 ) 11/19/2023 9:58 AM EDT Body Mass Index 41.05 11/19/2023 9:58 AM EDT Plan of Treatment Health Maintenance Due Date Last Done Comments CT Colonography 1959 Colonoscopy 1959 Colorectal Cancer Screening 1959 FIT-DNA 1959 FIT 1959 FOBT 1960 Sigmoidoscopy 1960 Influenza Vaccine (#1) 2025 3, 05/28/2022, 05/14/2021, Additional history exists Pneumococcal Vaccine: 65+ Years Completed 2 Insurance [address] [place] [address] [facility] Care Teams Facialist Relationship Specialty Start Date End Date Tamanna Pineda MD PCP - General Family Medicine 06/20/23
--- OUTSIDE RECORDS SUMMARY | 2025-03-14 14:41 | XMS_ITS | Encounter Summary ---
Author Organization The [facility] Address [address] [place] [address] Care Team Providers Care Software Installation Engineer Name Role Phone Tamanna Pineda MD Primary Care Provider [phone] Reason for Visit * Reason Comments Med Refill Encounter Details Date Type Department Care Team (Late st Contact Info) Description 10/28/2022 Refill [facility] Cardiology [address] [place] [address] Nilton Nichols MD [address] [facility] [address] [place] [address] Edema, unspecified type; Coronary artery disease due to lipid rich plaque Social History Tobacco Use Types Packs/Day Years Used Date Smoking Tobacco: Every Day Cigarettes Passive Smoke Exposure: Current Smokeless Tobacco: Never Alcohol Use Standard Drinks/Week [...] as of this encounter Visit Diagnoses Diagnosis Edema, unspecified type Coronary artery disease due to lipid rich plaque documented in this encounter Care Teams Software Installation Engineer Relationship Specialty Start Date End Date Tamanna Pineda MD [address] PCP - General 03/12/22 documented as of this encounter
--- NOTE | 2025-03-14 14:50 | CT_ITS ---
The [address] [address] Patient Name: SHARMILA GARVEY MRN: [id number] date: 1960 Sex: M Assigned Patient Location: CT Current Patient Location: CT Accession/Order Number: [id number] Exam Date: 03/14/2025 14:45 Report Date: 03/14/2025 15:06 At the request of: KALI PATEL DO Procedure: CT lung screening low-dose CT CHEST WITHOUT CONTRAST, LOW DOSE SCREENING: CLINICAL DATA: A 64-year old current smoker, smoking for over 25 pack-years. COMPARISON: Lung screening CT 01/02/2024 TECHNIQUE: Noncontrast axial CT scan images of the chest were obtained under the low dose screening CT protocol. Coronal and sagittal reconstructed images were also submitted. FINDINGS: Mediastinum : Suboptimal evaluation due to low-dose technique. Thoracic aorta appears normal in caliber. Pulmonary trunk appears nondilated. No pericardial effusion. No lymphadenopathy. The esophagus is grossly unremarkable. Lungs: No, pneumothorax or pleural effusion. Somewhat nodular consolidation involving the right upper lobe. Trachea and distal airways appear patent. Emphysema. Diffuse bronchial wall thickening. Mild lung scarring. 4 mm nodule right middle lobe series 4 image 84. Findings stable compared to the prior study. Upper abdomen: No acute findings. Bony thorax and chest wall: Soft tissues surrounding the chest wall demonstrate no acute findings. Osseous structures demonstrate degenerative change. CT/CT lung screening low-dose IMPRESSION: NO NEW OR ENLARGING SUSPICIOUS PULMONARY NODULE. SOMEWHAT NODULAR CONSOLIDATION INVOLVING THE RIGHT UPPER LOBE NEW SINCE 2023. AN INFECTIOUS PROCESS IS SUSPECTED. CT FOLLOW-UP AFTER THERAPY IS SUGGESTED TO ENSURE RESOLUTION. LUNG - RADS Version 1.0 Assessment: Category 2, Benign appearance or behavior. Management: Continue annual lung screening with LDCT in 12 months. Modifier: S Impression dictated by: Liam Juarez Jr., D.O. 03/14/2025 3:06 PM Dictation Location: [place] [address] Electronically authenticated by: [id number] Date: 03/14/2025 15:06
== END 2025-03-14 14:39 | disposition home or self-care (01) ==
LOC: CT 14:38
PROVIDERS: PCP Family Medicine; Visit Provider Internal Medicine
DX: F17.219 Nicotine dependence, cigarettes, with unspecified nicotine-induced disorders (principal); Z12.2 Encounter for screening for malignant neoplasm of respiratory organs; R91.8 Other nonspecific abnormal finding of lung field
CPT/HCPCS: 71271